=== PATIENT | female | born 1985 | race Caucasian/White ===

== ENCOUNTER 2021-07-05 09:33 | Emergency (ER) | payer SELFPAY ==
[~2021-07-05] VITALS: Ht 158.8 cm; Wt 82.1 kg
[2021-07-05 09:52] VITALS: BP 126/68
--- NOTE | 2021-07-05 09:57 | NUR ---
pt provided urine sample at this time, directed back into lobby
--- NOTE | 2021-07-05 11:06 | NUR ---
Blood for labwork drawn from marce lindquist. Patient tolerated.
--- NOTE | 2021-07-05 11:06 | NUR ---
36 y/o female, c/o abd pain, cramping with vaginal bleeding since the beginning of this month. denies n&v, diarrhea. states she started having spotting just this morning, but yesterday blood was dark. denies vaginal discharge at this time. skin is pink/warm/dry. a&o x4 with even and steady gait. lungs clear bl, heart rate even and regular. pt denies any fever, cp, sob, or cough at this time. denies anyone sick in [facility] with same symptoms at this time. pt states pain is 10/10 at this time. vss. patient. Tonyad made aware of pt. pmh: denies allergy: denies
[2021-07-05 11:26] LABS: BASOPHILS # (AUTO) 0.1 K/uL (0.00-0.22); BASOPHILS % (AUTO) 0.8 % (0.0-2.0); EOSINOPHILS # (AUTO) 0.1 K/uL (0-0.4); EOSINOPHILS % (AUTO) 0.8 % (0.0-4.0); HEMATOCRIT 34.9 % (36-48); HEMOGLOBIN 11.8 g/dL (12.0-16.0); LYMPHOCYTES # (AUTO) 2.4 K/uL (2.5-16.5); LYMPHOCYTES % (AUTO) 21.2 % (20.5-51.1); MEAN CORPUSCULAR HEMOGLOBIN 27 pg (27-31); MEAN CORPUSCULAR HGB CONC 34 g/dL (33-37); MEAN CORPUSCULAR VOLUME 80.8 fL (80-94); MONOCYTES # (AUTO) 0.9 K/uL (0.8-1.0); MONOCYTES % (AUTO) 8.3 % (1.7-9.3); NEUTROPHILS # (AUTO) 7.7 K/uL (1.8-7.7); NEUTROPHILS % (AUTO) 68.9 % (42.2-75.2); PLATELET COUNT (AUTO) 377 K/uL (140-450); RED BLOOD CELL COUNT(AUTO) 4.32 MIL/uL (4.20-5.40); RED CELL DISTRIBUTION WIDTH 13.9 % (11.6-13.7); WHITE BLOOD COUNT (AUTO) 11.2 K/uL (4.8-10.8)
--- NOTE | 2021-07-05 11:27 | NUR ---
ermd assessing pt in triage room
[2021-07-05 12:26] LABS: ALBUMIN 3.7 g/dL (3.4-5.0); ANION GAP 12.8 (8-16); CARBON DIOXIDE 26.4 mmol/L (21-32); CREATININE 0.7 mg/dL (0.6-1.3); POTASSIUM 4.2 mmol/L (3.5-5.1); TOTAL BILIRUBIN 0.2 mg/dL (0.0-1.0)
[2021-07-05 13:03] LABS: APPEARANCE,URINE CLEAR (CLEAR); BILIRUBIN,URINE NEGATIVE (NEGATIVE); BLOOD, URINE NEGATIVE (NEGATIVE); COLOR,URINE YELLOW (YELLOW); LEUKOCYTE ESTERASE ,URINE NEGATIVE (NEGATIVE); NITRITE, URINE NEGATIVE (NEGATIVE); UGLUCOSE NEGATIVE (NEGATIVE)
[2021-07-05 18:55] VITALS: BP 126/68
--- NOTE | 2021-07-05 18:55 | NUR ---
left without paperwork at this time
== END 2021-07-05 18:55 | disposition home or self-care (01) ==
LOC: MED 09:33
DX: O20.0 Threatened abortion (principal); Z3A.01 Less than 8 weeks gestation of pregnancy
CPT/HCPCS: 36415; 76801; 80053; 81003; 81025; 84702; 85025; 86886; 86900; 86901; 99284; Q0092